=== PATIENT | female | born 1955 | race Two or more races ===

== ENCOUNTER → 2016-11-16 | Outpatient (CLI) | payer MEDICARE ==
[~2016-11-16] MED LIST: ETOD400T PO; HYDR-3535 PO; LEVO750T3 PO; METH750T PO; NAPR500T PO; OMEP20CA2 PO; OXYC1TAB63 PO; STOO100C PO; TIZA4CAP3 PO
--- NOTE | 2016-11-16 12:29 | RADRPT ---
EXAM DATE/TIME: 11/16/2016 11:44 [facility] COMPARISON: No previous studies available for comparison. INDICATIONS : Evaluate for pneumonia, pneumothorax or communicable disease. Pre op cervical spine surgery. MEDICAL HISTORY : None. SURGICAL HISTORY : None. ENCOUNTER: Initial ACUITY: 1 day PAIN SCORE: 0/10 LOCATION: Bilateral chest FINDINGS: PA and lateral views of the chest demonstrate the lungs to be symmetrically aerated without evidence of mass, infiltrate or effusion. The cardiomediastinal contours are unremarkable. Osseous structure s are intact. CONCLUSION: 1. No acute cardiopulmonary findings. Jose Minor MD on November 16, 2016 at 12:27 Board Certified Radiologist. This report was verified electronically.
[2016-11-16 13:08] LABS: AUTOMATED NEUTROPHIL # 2.6 TH/MM3 (1.8-7.7); BASOPHIL % 0.3 % (0.0-2.0); EOSINOPHIL # 0.1 TH/MM3 (0-0.4); EOSINOPHIL % 1.3 % (0.0-4.0); HEMATOCRIT 39.9 % (35.0-46.0); HEMO FLAGS DIFF FINAL; LYMPH % 33.8 % (9.0-44.0); LYMPHOCYTE # 1.5 TH/MM3 (1.0-4.8); MEAN CORPUSCULAR HGB CONC 33.3 % (32.0-36.0); MONO % 6.7 % (0.0-8.0); NEUT % 57.9 % (16.0-70.0); PLATELET COUNT 294 TH/MM3 (150-450); RED BLOOD COUNT 4.92 MIL/MM3 (4.00-5.30); RED CELL DISTRIBUTION WIDTH 14.3 % (11.6-17.2); WHITE BLOOD COUNT 4.6 TH/MM3 (4.0-11.0)
[2016-11-16 13:11] LABS: BACTERIA, URINE RARE /hpf; BLOOD, URINE NEG (NEG); COMMENT (UR) CULT NOT INDICATED; CULTURE IF INDICATED CULT NOT INDICATED; GLUCOSE,URINE NEG (NEG); KETONE, URINE NEG (NEG); MUCUS URINE FEW /lpf (OCC); NITRITE,URINE NEG (NEG); PH, URINE 5.5 (5.0-8.5); SQUAMOUS EPITHELIAL CELL URINE 2 /hpf (0-5); URINE COLOR YELLOW (YELLW/STRAW)
[2016-11-16 13:19] LABS: APTT (PATIENT) 30.5 SEC (24.3-30.1); INTERNATIONAL NORMALIZED RATIO 0.9 RATIO; PROTHROMBIN TIME - PATIENT 10.2 SEC (9.8-11.6)
[2016-11-16 13:36] LABS: ANION GAP 7 MEQ/L (5-15); AST (GOT) 20 U/L (15-37); BICARBONATE 29.9 MEQ/L (21.0-32.0); BLOOD UREA NITROGEN 20 MG/DL (7-18); CHLORIDE 104 MEQ/L (98-107); GLOMERULAR FILTRATION RATE 116 ML/MIN (>89); GLUCOSE,FASTING 66 MG/DL (74-99); POTASSIUM 3.9 MEQ/L (3.5-5.1); SODIUM (NA) 141 MEQ/L (136-145)
[2016-11-16 13:42] LABS: ALKALINE PHOSPHATASE 65 U/L (45-117); ALT (GPT) 19 U/L (10-53); TOTAL BILIRUBIN ADULT 0.3 MG/DL (0.2-1.0)
--- NOTE | 2016-11-17 21:15 | EKG ---
Date Performed: 11/16/2016 Time Performed: 11:12:14 PTAGE: 61 years EKG: Sinus rhythm NORMAL ECG NO PREVIOUS TRACING DOCTOR: Macie Ospina Interpretating Date/Time 11/17/2016 21:11:51
== END ==
LOC: CPRE 10:44
PROVIDERS: ATTEND Neurological Surgery
DX: Z01.812 Encounter for preprocedural laboratory examination (principal); Z01.810 Encounter for preprocedural cardiovascular examination; Z01.811 Encounter for preprocedural respiratory examination; M50.20 Other cervical disc displacement, unspecified cervical region
CPT/HCPCS: 36415; 71020; 80053; 81001; 85025; 85610; 85730; 93005

== ENCOUNTER 2016-11-24 08:31 | Observation (INO) | payer MEDICARE ==
[~2016-11-24] VITALS: Ht 157.5 cm; Wt 68.8 kg
[~2016-11-24 08:31] MED LIST changes: +GELFOAM SIZE 100 ONE; +GENTAMICIN SULFATE 80 MG/2 ML VIAL ONE; -HYDR-3535 PO; -LEVO750T3 PO; +MICROFIBRILLAR COLLAGEN HEMOSTAT 70 X 35 MM BANDAGE ONE; +THROMBIN (TOPICAL) 5,000 UNIT VIAL ONE; +ceFAZolin 2 GM PREMIX 50 ML ONE
[2016-11-24] MEDS ORDERED: ePHEDrine/NS 50 MG/5 ML SYR IV ONE (08:44)
[2016-11-24] MEDS ORDERED: PROPOFOL 200 MG/20 ML AMP IV ONE (08:44)
[2016-11-24] MEDS ORDERED: ONDANSETRON HCL 4 MG/2 ML VIAL IV PUSH ONE (08:45)
[2016-11-24] MEDS ORDERED: PHENYLEPH/NS 1000 MCG/10 ML SYR IV ONE (08:45)
[2016-11-24] MEDS ORDERED: LACTATED RINGER'S 1000 ML INJ 1,000 ML IV ONE (08:45)
[2016-11-24 09:00] VITALS: BP 126/78; PULSE 64; RESP 18; TEMP 96.9; O2SAT 96
[2016-11-24] MEDS ORDERED: VANCOMYCIN HCL 1000 MG ON-CALL/NS 250 ML IV SCH ×2 (09:15)
[2016-11-24] MEDS ORDERED: CHLORHEXIDINE GLUCONATE 2 % 1 PACK (2 CLOTHS) TOPICAL PRN (09:15)
[2016-11-24] MEDS ORDERED: POVIDONE IODINE 5% (ANTISEPSIS KIT) 4 APPLICATIONS EACH NARE PRN (09:15)
[2016-11-24] MEDS ORDERED: METOPROLOL TARTRATE 25 MG TAB PO PRN (09:15)
[2016-11-24] MEDS ORDERED: SODIUM CHLORID 0.9% 500 ML IV PRN (09:15)
[2016-11-24] MEDS ORDERED: INSULIN HUMAN REGULAR 1,000 UNITS/10 ML VIAL SQ PRN (09:15)
[2016-11-24] MEDS ORDERED: LACTATED RINGER'S 1000 ML IV PRN (09:15)
[2016-11-24] MEDS ORDERED: fentaNYL CITRATE 250 MCG/5 ML AMP ONE (09:36)
[2016-11-24] MEDS ORDERED: ARTIFICIAL TEARS OPTH OINT 3.5 APPLIC/3.5 GM TUBO ONE (09:36)
[2016-11-24] MEDS ORDERED: MIDAZOLAM HCL 2 MG/2 ML VIAL ONE (09:36)
[2016-11-24] MEDS ORDERED: ACETAMINOPHEN 1000 MG/100 ML VIAL IV ONE (09:36)
[2016-11-24] MEDS ORDERED: FAMOTIDINE 20 MG/2 ML VIAL ONE (09:37)
[2016-11-24] MEDS ORDERED: ceFAZolin INJ 1,000 MG VIAL IV ONE (10:15)
[2016-11-24] MEDS ORDERED: ceFAZolin INJ 1,000 MG VIAL ONE (11:06)
[2016-11-24] MEDS ORDERED: GENTAMICIN SULFATE 80 MG/2 ML VIAL IRRIGATION ONE (11:08)
[2016-11-24] MEDS ORDERED: THROMBIN (TOPICAL) 5,000 UNIT VIAL TOP ONE (11:08)
[2016-11-24] MEDS ORDERED: GELFOAM SIZE 100 TOP ONE (11:08)
[2016-11-24] MEDS ORDERED: MICROFIBRILLAR COLLAGEN HEMOSTAT 70 X 35 MM BANDAGE TOPICAL ONE (11:08)
[2016-11-24] MEDS ORDERED: DO NOT ADM ANY ANTICOAGULANT DRUGS PRN (13:28)
[2016-11-24] MEDS ORDERED: HYDR-3535 PO (13:43)
--- NOTE | 2016-11-24 14:09 | PD.OP ---
Operative Report Date of Surgery: Nov 24, 2016 Preoperative Diagnosis: C4-5, C5-6 disk herniations Postoperative Diagnosis: C4-5, C5-6 disk herniations Procedure: C4-5, C5-6 anterior cervical discectomy, interbody arthodhesis using PEEK cage filled with autologous bone graft, Simplicity plate and screws Anesthesia: general Surgeon: Shorty Olivas Senior Network Systems Engineer(s): Enrico Operation and Findings: INDICATIONS FOR THE PROCEDURE Ms Mahmood is a 61 year-old female who presented with intractable neck pain and clinical evidence of right C5 and C6 upper extremity radiculopathy. She was found to have significant spndylosis with stenosis. She has failed maximum nonsurgical management including multiple modalities of conservative treatment as well as pain management interventions by an interventional pain specialist. A surgical decompression and arthrodhesis were indicated. The [id number] details of the procedure, indications, alternatives, risks and potential complications were fully discussed with the patient. The patient fully understood. All The questions were answered. No guarantees were given. The patient voiced requesting the procedure and provided informed consents. The patient was offered the alternative of delaying the procedure and continuing with nonsurgical management. DETAILS OF THE SURGICAL PROCEDURE After the induction of general anesthesia, endotracheal intubation was performed. A Murillo catheter, bilateral CYRUS hose, and sequential compression devices were placed and kept throughout the procedure. Placement of electrodes for neurophysiological monitoring of the somatosensorial evoked potentials. motor evoked potentials, and EMG as well as laryngeal nerve monitoring was achieved. The patient was positioned supine on a Garry table with the head over a gel doughnut. All pressure points were carefully padded with eggcrate mattress. The eyes were tapped shut after ointment was applied by the anesthesiologist to prevent corneal abrasion. A Candelario hugger was placed over the exposed lower body to maintain control of the core body temperature. The electrophysiological team placed the needles and electrodes in their proper location and baseline SSEP's and motor evoked potentials were registered prior and after positioning and endotracheal intubation. The anterior cervical region was prepped and draped in the usual sterile fashion. A localizing x-ray was performed with a C-arm. The surgical procedure was performed in several steps as follow: SURGICAL APPROACH A skin incision was made along the medial cervical crease with a #10 blade. The dissection was carried out through the platysma exposing the sternocleidomastoid muscle. The cervical spine was approached following the fascial layers of the neck just medial to the anterior border of the sternocleidomastoid and carotid sheath by a combination of sharp and dull dissection. The omohyoid muscle was identified and carefully dissected laterally and the deep cervical fascia was carefully opened. The longus colli muscles were retracted to each side of the midline. A marker was placed at the disc space C5-6 and a cross-table lateral x-ray performed with a C-arm. SURGICAL DECOMPRESSION In order to decompress the anterior surface of the spinal cord it was necessary to preform a microsurgical resection of the disk at C4-5 and C5-6. At this point in the procedure the operating microscope was draped in the usual sterile fashion and brought to the field. The rest of the surgical procedure was performed using microdissection technique with the exception of the closure. Under the operative microscopic, a self-retaining retractor was placed underneath the longus colli muscle. Anterior osteophite spurs werte carefully removed with the Le[place]ell. The annulus at C4-5 and C5-6 were incised with a #15 blade and microdiscectomy was then carefully carried out using angled curets and pituitary forceps. There were osteophitic/disk herniation complexes causing mass effect and compression of the dural sac and nerve roots. The posterior longitudinal ligament was then elevated with an angled curet and incised with a 15 bladed knife. A careful resection of the posterior longitudinal ligament was carried out using a thin footplate 2 mm Kerrison. A nerve hook was used to assess the epidural space behing the vertebral bodies C5 and C6 in search for residual disk fragments. The margins of the posterior endplates at C4-5 and C5- 6 were carefully drilled and undercut with a TPS drill under high magnification. The decompression was then carried out laterally, and a bilateral foraminotomy was performed with a 2mm thin foot Kerrison. Then the vertebral bodies above and below the disk space were undercut using a 2 mm thin foot Kerrison. The epidural space was the systematically assessed with a nerve hook in search for disk fragments or scar tissue. An excellent decompression was achieved in both, the dural sac and bilateral exiting nerve roots. The incision was then irrigated with a large amount of antibiotic solution INTERBODY ARTHRODHESIS In order to avoid collapse of the disk space which would result in bilateral foraminal stenosis, and to increase the chances of a successful fusion, it was necessary to place an interbody cage filled with autologous bone. At this point of the procedure, the superior and inferior endplates were then evenly decorticated with a TPS drill. The use of a drill in combination with a curette allowed me to systematically remove the cartilaginous endplates, exposing healthy bone for the interbody arthrodesis. Fourteen millimeters distraction pins were then placed at the vertebral bodies adjacent to the disk space, and gentle distraction was applied. The size of the interbody cage was then assessed using different size spacers, and a rasp was used to ensure no residual cartilage. A PEEK cage of the appropriate size was selected, and the interbody arthrodesis was then preformed by carefully impacting a PEEK cage filled with autologous bone graft to the disc spaces C4-5 and C5-6. An excellent position of the cage was achieved. This was was confirmed anatomically by feeling the space posterior to the implant and distance to the anterior surface of the dural sac. Radiological confirmation of the position was performed with a cross lateral xray performed with the C-arm. INTERNAL INSTRUMENTAL FIXATION Once that the interbody device was in an appropriate position, it was necessary to stabilize the spine with anterior instrumentation. Anterior instrumentation has demonstrated to increase the rate of fusion, acelerate the patient's recovery, and decrease the rate of failed interbody grafts. At this point of the procedure, the distance between the vertebral bodies was carefully measures, and a Simplicity plate was brought to the field and presented in front of the vertebral bodies C4 C5 and C6. [facility] holes were then drilled using the TPS drill, and the plate was then secured to the spine using self-drilling, self-tapping screws. Initially, the inferior right screw was inserted, followed by placement of the contralateral upper screw. The remanding screws were sequentially placed in a contra-lateral fashion. A proper purchase was achieved with all screws and the position of the cage, plate and screws, and alignment of the spine was assessed anatomically by direct visualization, and radiologically by performing a cross lateral xray of the cervical spine with the C-arm. CLOSURE The incision was irrigated with several liters of antibiotic solution. Hemostasis was achieved with a bipolar. The screws were locked to prevent backing out. A 7 mm Garry-Tom drain was left in the prevertebral space and externalized through a separate stab incision. The incision was then closed in layers. 3-0 Vicryl with interrupted sutures was used to close the platysma and subcutaneous tissue. The skin was closed with 4-0 running subcuticular Vicryl and glue was applied to the skin. The drain was secured with a 3-0 nylon. At the end of the procedure the sponge, needle and instrument counts were all correct. The estimated blood loss was less than 80 cc. No blood transfusion was given. No intraoperative complications occurred. The patient received prophylactic antibiotics. The patient was then extubated and transferred to the recovery room in stable condition. Shorty Olivas MD Nov 24, 2016 14:09
[2016-11-24] MEDS ORDERED: ACETAMINOPHEN 325 MG TAB PO PRN (14:15)
[2016-11-24] MEDS ORDERED: MORPHINE SULFATE 4 MG/ML INJ IV PUSH PRN ×2 (14:15)
[2016-11-24] MEDS ORDERED: CYCLOBENZAPRINE HCL 10 MG TAB PO PRN (14:15)
[2016-11-24] MEDS ORDERED: RESP: ALBUTEROL 2.5 MG/3 ML NEB (PRN) INH (14:15)
[2016-11-24] MEDS: PANTOPRAZOLE SOD 40 MG DELAYED RELEASE TAB PO SCH (14:15)
[2016-11-24] MEDS ORDERED: BISACODYL 10 MG SUPP RECTAL PRN (14:15)
[2016-11-24] MEDS: SODIUM CHLORIDE 0.9% FLUSH 5 ML FLUSH IVF SCH ×2 (14:15→21:00)
[2016-11-24] MEDS ORDERED: DEXAMETHASONE SOD PHOS 4 MG/ML VIAL IV SCH (14:15)
[2016-11-24] MEDS ORDERED: cloNIDine HCL 0.1 MG TAB PO/NG PRN (14:15)
[2016-11-24] MEDS ORDERED: ACETAMINOPHEN/HYDROcodone 325 MG/10 MG TAB PO PRN (14:15)
[2016-11-24] MEDS ORDERED: SODIUM CHLORIDE 0.9% FLUSH 5 ML FLUSH IVF PRN (14:15)
[2016-11-24] MEDS ORDERED: *morphine SULFATE 8 MG/ML PERIprocedure ONLY ONE ×2 (14:20→16:20)
[2016-11-24] MEDS: NS + KCL 20 MEQ INJ 1,000 ML IV SCH (14:30)
--- NOTE | 2016-11-24 14:53 | RADRPT ---
EXAM DATE/TIME: 11/24/2016 10:11 [facility] COMPARISON: No previous studies available for comparison. INDICATIONS : Stenosis, herniated disk, hardware placement. MEDICAL HISTORY : None. SURGICAL HISTORY : None. ENCOUNTER: Initial ACUITY: 1 day PAIN SCORE: 0/10 LOCATION: Cervical spine FINDINGS: The patient is status post anterior fusion of C4 through C6. Hardware appears to be in good position . CONCLUSION: Status post anterior cervical fusion from C4 through C6 which appears to be in good position. Chidi Salcedo MD on November 24, 2016 at 14:42 Board Certified Radiologist. This report was verified electronically.
[2016-11-24] MEDS: DEXAMETHASONE SOD PHOS 4 MG/ML VIAL IV SCH ×2 (16:00→20:51)
[2016-11-24 17:00] VITALS: BP 103/70; PULSE 68; RESP 18; TEMP 97; O2SAT 96
[2016-11-24] MEDS: MENTHOL LOZENGE BUCCAL PRN ×2 (17:02→20:51)
[2016-11-24] MEDS: ceFAZolin 2 GM PREMIX 50 ML IV SCH ×2 (17:02→22:50)
[2016-11-24 19:30] VITALS: BP 109/68; PULSE 87; RESP 16; TEMP 97.1; O2SAT 96
[2016-11-24] MEDS: ONDANSETRON HCL 4 MG/2 ML VIAL IV PRN (20:51)
[2016-11-24] MEDS: DOCUSATE SODIUM 100 MG CAP PO SCH (22:51)
[2016-11-24] MEDS: ACETAMINOPHEN/HYDROcodone 325 MG/10 MG TAB PO PRN (22:51)
[2016-11-25] VITALS (7 sets, daily range): BP systolic 92–113; BP diastolic 56–69; PULSE 69–82; RESP 16–18; TEMP 96–98.7; O2SAT 83–98
[2016-11-25] MEDS: DEXAMETHASONE SOD PHOS 4 MG/ML VIAL IV SCH ×3 (03:34→16:46)
[2016-11-25] MEDS: NS + KCL 20 MEQ INJ 1,000 ML IV SCH (03:34)
[2016-11-25] MEDS: ACETAMINOPHEN/HYDROcodone 325 MG/10 MG TAB PO PRN ×4 (03:34→18:05)
[2016-11-25] MEDS: DOCUSATE SODIUM 100 MG CAP PO SCH (08:22)
[2016-11-25] MEDS: SODIUM CHLORIDE 0.9% FLUSH 5 ML FLUSH IVF SCH (08:22)
[2016-11-25] MEDS: PANTOPRAZOLE SOD 40 MG DELAYED RELEASE TAB PO SCH (08:22)
[2016-11-25] MEDS: ceFAZolin 2 GM PREMIX 50 ML IV SCH (08:33)
--- NOTE | 2016-11-25 10:08 | HHI.DCPOC ---
Discharge Care Plan Diagnosis: (1) Status post cervical arthrodesis Goals to Promote Your Health * To prevent worsening of your condition and complications * To maintain your health at the optimal level Directions to Meet Your Goals Take your medications as prescribed Follow your dietary instruction Follow activity as directed Keep your appointments as scheduled Take your immunizations and boosters as scheduled If your symptoms worsen call your PCP, if no PCP go to Urgent Care Center or Emergency Room Smoking is Dangerous to Your Health. Avoid second hand smoke Call the 24-hour hour crisis hotline for domestic abuse at Pilar Kendrick Nov 25, 2016 10:08
--- NOTE | 2016-11-25 10:18 | HHI.DS ---
Discharge Summary Admission Date Nov 24, 2016 at 14:07 Discharge Date: Nov 25, 2016 Admitting Diagnosis s/p ACDF (1) Status post cervical arthrodesis ICD Code: Z98.1 Brief History Ms Mahmood is a 61 year-old female who presented with intractable neck pain and clinical evidence of right C5 and C6 upper extremity radiculopathy. She was found to have significant spondylosis with stenosis. She has failed maximum nonsurgical management including multiple modalities of conservative treatment as well as pain management interventions by an interventional pain specialist. A surgical decompression and arthrodesis were indicated. PE at Discharge Alert, awake, oriented. Speech fluent. Wound: clean and dry with dressing in place CN: pupils equal, facial motor symmetric Neck: immobilized by [place] J collar Motor: moving all four extremities Respiratory: clear, nonlabored Hospital Course Ms. Mahmood underwent a C4-5, C5-6 anterior cervical discectomy, interbody arthrodesis using PEEK cage filled with autologous bone graft, Simplicity plate and screws on Nov 24, 2016. Her surgery went well without complications. She was discharged home in stable conditions. Wound care and activity restrictions were discussed. Pt Condition on Discharge: Stable Discharge Disposition: Discharge Home Discharge Instructions DIET: Follow Instructions for: Heart Healthy Diet, Soft Diet ADDITIONAL Diet Instructions: advance as tolerated ACTIVITIES You can perform: Weight Bearing As Titus ADDITIONAL Activity Instructio: Avoid strenuous activities, lifting over 5 lbs, overhead, pushing/pulling, or any other activities that will place stress on the cervical spine. Wear cervical collar at all times, may remove only when eating. No driving. New Medications: Hydrocodone-Acetaminophen (Lortab) 10-325 Mg Tab 1 TAB PO Q8HR PRN PAIN #90 Ref 0 TAB Pilar Kendrick Nov 25, 2016 10:18
[2016-11-25] MEDS: ONDANSETRON HCL 4 MG/2 ML VIAL IV PRN (11:33)
[2016-11-27] MEDS ORDERED: LEVO750T3 PO (15:56)
== END 2016-11-25 18:15 | disposition home or self-care (01) ==
LOC: HSDC 08:31 → EDUNIT# 10:00 → HSDI 14:07 → N06A 16:55
PROVIDERS: ADMIT Neurological Surgery; ATTEND Neurological Surgery
DX: M50.121 Cervical disc disorder at C4-C5 level with radiculopathy (principal); M50.122 Cervical disc disorder at C5-C6 level with radiculopathy; M48.02 Spinal stenosis, cervical region; M47.22 Other spondylosis with radiculopathy, cervical region
CPT/HCPCS: 20936; 22551; 22552; 22853; 72020; 76000; 94150; 96361; 96374; 96375; 96376; 97163; C1713; G0378; G8987; G8988; J0131; J0690; J1100; J1580; J2250; J2270; J2370; J2405; J3010; J3370; J3480; J7050; J7120; L0150; L0172